=== PATIENT | male | born 1980 | race Caucasian/White ===

== ENCOUNTER 2017-03-15 10:34 | Emergency (ER) | payer BC ==
--- NOTE | 2017-03-15 11:05 | EDM.PDOC ---
ED HPI GENERAL MEDICAL PROBLEM - General Chief Complaint: Neuro Symptoms/Deficits Stated Complaint: POSS brain aneurysm Time Seen by Provider: 03/15/17 11:04 - History of Present Illness INITIAL COMMENTS - FREE TEXT/NARRATIVE: 37-year-old male presents emergency room after being sent here by his chiropractor with concerns of having a brain aneurysm. Patient is a significant past medical history of having a stroke at age 21 he has some mild and sided weakness the cause of this is never been sorted out. Over the last for 5 days patient has had increasing pain behind his right eye. The patient has not noticed any areas of numbness or new areas of weakness. The patient used to take aspirin religiously however has gotten out of the habit. He has no family history of spontaneous intracranial hemorrhage. Treatments DOCUMENT CLERK: Reports: NSAIDS Right Headache Pain Score (Numeric/FACES): 7 - Related Data Allergies Allergy/AdvReac Type Severity Reaction Status Date / Time No Known Allergies Allergy Verified 03/15/17 10:47 Home Meds: Home Meds Albuterol [Ventolin HFA] 180 mcg INH Q4HR PRN 03/15/17 [History] Past Medical History Respiratory History: Reports: Asthma Neurological History: Reports: CVA Other Neuro History: states his right side has slight weakness from stroke - "5% " - Infectious Disease History Infectious Disease History: Reports: Chicken Pox Social & Family History - Family History Family Medical History: Noncontributory - Tobacco Use Smoking Status *Q: Never Smoker Second Hand Smoke Exposure: No - Caffeine Use Caffeine Use: Reports: Soda, Tea Other Caffeine Use: daily - Recreational Drug Use Recreational Drug Use: No ED ROS GENERAL - Review of Systems Review Of Systems: See Below Constitutional: Reports: No Symptoms HEENT: Reports: Rhinitis, Sinus Problem. Denies: Ear Pain, Eye Discharge, Eye Pain, Vision Change Respiratory: Reports: No Symptoms Cardiovascular: Reports: No Symptoms GI/Abdominal: Reports: No Symptoms Musculoskeletal: Reports: Neck Pain, Back Pain Neurological: Reports: Headache. Denies: Confusion, Dizziness, Syncope, Trouble Speaking ED EXAM, NEURO - Physical Exam Exam: See Below Exam Limited By: No Limitations General Appearance: Alert, No Apparent Distress Eye Exam: Bilateral Eye: EOMI, Normal Inspection, PERRL Ears: Normal External Exam, Normal Canal, Hearing Grossly Normal, Normal TMs Nose: Normal Inspection, Normal Mucosa, No Blood Throat/Mouth: Normal Inspection, Normal Lips, Normal Teeth, Normal Gums, Normal Oropharynx, Normal Voice, No Airway Compromise Head Exam: Atraumatic, Normocephalic Neck: Normal Inspection, Supple, Non-Tender, Full Range of Motion. No: Lymphadenopathy (L), Lymphadenopathy (R) Respiratory/Chest: No Respiratory Distress, Lungs Clear, Normal Breath Sounds Cardiovascular: Regular Rate, Rhythm, No Edema, No Murmur GI/Abdominal: Normal Bowel Sounds, Soft, Non-Tender, No Organomegaly, No Distention, No Abnormal Bruit, No Mass Neurological: Alert, Normal Mood/Affect, CN II-XII Intact, Normal Gait, No Motor /Sensory Deficits, Oriented x 3 Course - Vital Signs Last Recorded V/S: Last Vital Signs Temp 36.2 C 03/15/17 12:36 Pulse 58 L 03/15/17 12:36 Resp 18 03/15/17 12:36 BP 117/104 H 03/15/17 12:36 Pulse Ox 98 03/15/17 12:36 - Re-Assessments/Exams Free Text/Narrative Re-Assessment/Exam: 03/15/17 12:34 Early on the patient patient's course etiology was consulted who recommended unenhanced CT followed by a unenhanced MRA of the brain. This was done CT was unremarkable MRI was unremarkable patient has done well in the emergency department and would like to go home. We'll start loratadine for sinus congestion and suspected sinus headaches with his discomfort in the right frontal sinus. Departure - Departure Time of Disposition: 12:38 Disposition: Home, Self-Care 01 Clinical Impression: Sinus headache - Discharge Information Instructions: Sinus Headache, [id number] Referrals: PCP,None [Primary Care Provider] - Forms: ED Department Discharge Additional Instructions: Return to the emergency room with any questions problems worsening symptoms. Follow up at the Hospital clinic this next week for recheck. [phone]. Start loratadine 10 mg daily.
--- NOTE | 2017-03-15 11:43 | CT ---
Head CT Technique: Multiple axial sections through the brain were obtained. Intravenous contrast was not utilized. Comparison: No previous intracranial imaging. Findings: Ventricles along with basal cisterns and sulci over the convexities are within normal limits for the patient's age. No abnormal parenchymal densities are seen. No evidence of intracranial hemorrhage. No midline shift or mass effect is seen. Posterior fossa shows slightly diminished details due to beam hardening artifact from the skull base. Bone window settings were reviewed which shows minimal mucosal thickening within the right frontal and within both sides of the anterior ethmoid sinuses which is likely incidental. No acute calvarial abnormality is appreciated. Impression: 1. No findings of intracranial hemorrhage. Minimal sinus findings which are felt to be incidental. 2. Nothing acute is identified on noncontrast head CT study. Diagnostic code #2
--- NOTE | 2017-03-15 12:20 | MR ---
MR angiogram of brain Technique: [id number] MRA angiogram study was obtained centered to the [place] of [place]. Multiple MIP images were obtained in multiple projections. Comparison: Previous noncontrast head CT study performed earlier on the same day. Findings: Normal caliber of the basilar artery is seen. Internal carotid siphon appears unremarkable on both sides. Normal appearance of the middle cerebral artery, anterior cerebral artery and posterior cerebral arteries are seen. No focal areas of narrowing are seen. No aneurysm is identified. Impression: 1. No abnormality is identified on MR angiogram study of the brain which is centered to the [place] of [place]. Diagnostic code #1
[2017-03-15 12:37] VITALS: BP 117/104
== END 2017-03-15 13:02 | disposition home or self-care (01) ==
LOC: JD.ED 10:34
DX: R51 Headache (principal); J45.909 Unspecified asthma, uncomplicated; Z86.73 Personal history of transient ischemic attack (TIA), and cerebral infarction without residual deficits
CPT/HCPCS: 70450; 70450-26; 70544; 70544-26; 99283; 99284-25

== ENCOUNTER 2024-07-24 12:45 | Emergency (ER) | payer BC ==
[2024-07-24 14:10] LABS: BASOPHILS PERCENT AUTO 0.3 % (0.0-1.0); EOSINOPHILS ABSOLUTE AUTO 0.1 K/mm3 (0.0-0.4); HEMATOCRIT 42.8 % (42.0-52.0); HEMOGLOBIN 14.5 gm/dl (14.0-18.0); IMMATURE GRAN ABSOLUTE AUTO 0.04 K/mm3 (0.00-0.05); IMMATURE GRAN PERCENT AUTO 0.4 % (0.0-0.4); LYMPHOCYTES ABSOLUTE AUTO 1.4 K/mm3 (1.0-4.8); LYMPHOCYTES PERCENT AUTO 13.8 % (24.0-44.0); MEAN CORPUSCULAR HEMOGLOBIN 29.6 pg (28.0-32.0); MEAN CORPUSCULAR HGB CONC 33.9 g/dl (32.0-36.0); MEAN CORPUSCULAR VOLUME 87.3 fl (83.0-99.0); MEAN PLATELET VOLUME 9.2 fl (9.4-12.4); MONOCYTES ABSOLUTE AUTO 0.4 K/mm3 (0.0-0.8); MONOCYTES PERCENT AUTO 4.1 % (0.0-8.0); NEUTROPHILS ABSOLUTE AUTO 7.9 K/mm3 (1.8-7.7); NEUTROPHILS PERCENT AUTO 80.4 % (41.0-71.0); PLATELET COUNT,PLT 300 K/mm3 (150-400); WHITE BLOOD CELL COUNT,WBC 9.79 K/mm3 (3.9-11.3)
[2024-07-24 14:29] LABS: A/G RATIO 1.3 (1-2); ANION GAP 13.1 (5-15); BUN/CREATININE RATIO 12.7 (14-18); CREATININE 1.1 mg/dL (0.7-1.3); EST CRCL DRUG DOSING (CG) 93.63 mL/min; POTASSIUM,K 3.1 mEq/L (3.5-5.1); PROTEIN TOTAL,TP 7.2 g/dl (6.4-8.2)
[2024-07-24 14:50] LABS: C-REACTIVE PROTEIN 0.09 mg/dL (<0.30)
[2024-07-24] MEDS: Sodium Chloride 0.9% 1,000 ML IV SCH (15:06)
[2024-07-24] MEDS: Potassium Chloride 20 MEQ Tab.ER PO ONE (15:58)
[2024-07-24 17:05] VITALS: BP 130/81; PULSE 60
== END 2024-07-24 16:57 | disposition home or self-care (01) ==
LOC: JD.ED 12:45
DX: G52.2 Disorders of vagus nerve (principal); E87.6 Hypokalemia; J45.909 Unspecified asthma, uncomplicated; Z86.73 Personal history of transient ischemic attack (TIA), and cerebral infarction without residual deficits; Z79.899 Other long term (current) drug therapy
CPT/HCPCS: 36415; 80053; 83690; 83735; 84484; 85025; 85379; 86140; 93005; 93246; 96360; 96361; 99285-25; A9270-GY; J7030